=== PATIENT | male | born 1935 | race African-American/Black ===

== ENCOUNTER 2019-09-24 14:28 | Emergency (ER) | payer OTHER, MEDICAID ==
[~2019-09-24] VITALS: Ht 167.6 cm; Wt 72.7 kg
[~2019-09-24 14:28] MED LIST: advil
[2019-09-24 14:32] VITALS: BP 138/81
--- NOTE | 2019-09-24 14:40 | NUR ---
ambulated to bed 4
--- NOTE | 2019-09-24 14:42 | NUR ---
84 YO MALE CO BODYACHES X 6 MONTHS. NO RESPIRATORY DISTRESS, EUPNIC. VSS. 5/10 DISCOMFORT. PT STATES THAT HE HAS A SCRATCHY THROAT FROM SEASONAL ALLERGIES. HX OSTEOARTHRITIS
[2019-09-24] MEDS ORDERED: KETOROLAC 60 MG/2 ML VIAL IM ONE (14:50)
[2019-09-24 15:16] VITALS: BP 138/81
--- NOTE | 2019-09-24 15:16 | NUR ---
Patient discharged with v/s stable. Written and verbal after care instructions given and explained. Patient alert, oriented and verbalized understanding of instructions. Ambulatory with steady gait. All questions addressed prior to discharge. ID band removed. Patient advised to follow up with PMD. Rx of NORCO AND MOTRIN given. Patient educated on indication of medication including possible reaction and side effects. Opportunity to ask questions provided and answered.
== END 2019-09-24 15:16 | disposition home or self-care (01) ==
LOC: MED 14:28
DX: M79.10 Myalgia, unspecified site (principal); M19.90 Unspecified osteoarthritis, unspecified site; Z79.899 Other long term (current) drug therapy
CPT/HCPCS: 96372; 99283; J1885

== ENCOUNTER 2023-01-21 11:53 | Emergency (ER) | payer OTHER, MEDICAID ==
[~2023-01-21] VITALS: Ht 167.6 cm; Wt 64.9 kg
[2023-01-21 11:57] VITALS: BP 134/87; PULSE 60; RESP 18; TEMP 97.8; O2SAT 99
[2023-01-21] MEDS ORDERED: HYDR-5191 PO (13:04)
[2023-01-21] MEDS ORDERED: HYDROcodone/APAP 5/325 MG 1 TAB TAB PO ONE (13:30)
== END 2023-01-21 13:47 | disposition home or self-care (01) ==
LOC: MED 11:53
DX: Z76.0 Encounter for issue of repeat prescription (principal); Z79.899 Other long term (current) drug therapy
CPT/HCPCS: 99283

== ENCOUNTER 2023-02-21 11:33 | Emergency (ER) | payer OTHER, MEDICAID ==
[~2023-02-21] VITALS: Ht 165.1 cm; Wt 65.8 kg
[~2023-02-21 11:33] MED LIST changes: +HYDR-5191 PO
[2023-02-21 11:45] VITALS: BP 126/102; PULSE 58; RESP 15; TEMP 97.7; O2SAT 95
[2023-02-21] MEDS ORDERED: HYDROcodone/APAP 10/325 MG 1 TAB TAB PO PRN (13:00)
[2023-02-21] MEDS ORDERED: HYDR-5191 PO (13:08)
[2023-02-21 13:45] VITALS: BP 126/99; PULSE 62; RESP 15; TEMP 97.7; O2SAT 96
== END 2023-02-21 13:45 | disposition home or self-care (01) ==
LOC: MED 11:33
DX: G89.29 Other chronic pain (principal); M19.90 Unspecified osteoarthritis, unspecified site; Z76.0 Encounter for issue of repeat prescription; Z79.899 Other long term (current) drug therapy
CPT/HCPCS: 99283

== ENCOUNTER 2023-03-07 09:52 | Emergency (ER) | payer OTHER, MEDICAID ==
[~2023-03-07] VITALS: Ht 165.1 cm; Wt 64.4 kg
[2023-03-07 09:54] VITALS: BP 122/82; PULSE 61; RESP 16; TEMP 97.7; O2SAT 98
[2023-03-07] MEDS ORDERED: HYDROcodone/APAP 5/325 MG 1 TAB TAB PO ONE (10:10)
[2023-03-07] MEDS ORDERED: ACET-8905 PO (10:12)
[2023-03-07 10:27] VITALS: BP 122/82; PULSE 61; RESP 16; TEMP 97.7; O2SAT 98
== END 2023-03-07 10:27 | disposition home or self-care (01) ==
LOC: MED 09:52
DX: G89.29 Other chronic pain (principal); M19.90 Unspecified osteoarthritis, unspecified site; F17.210 Nicotine dependence, cigarettes, uncomplicated; Z71.6 Tobacco abuse counseling; Z79.899 Other long term (current) drug therapy
CPT/HCPCS: 99283

== ENCOUNTER 2023-04-02 14:34 | Emergency (ER) | payer OTHER, MEDICAID ==
[~2023-04-02] VITALS: Ht 180.3 cm; Wt 72.6 kg
[2023-04-02 14:34] VITALS: BP 165/90; PULSE 59; RESP 16; TEMP 98.1; O2SAT 95
[~2023-04-02 14:34] MED LIST changes: +ACET-8905 PO
[2023-04-02] MEDS ORDERED: ACET-8905 PO ×2 (17:44→17:45)
[2023-04-02 17:52] VITALS: BP 165/90; PULSE 59; RESP 16; TEMP 98.1; O2SAT 95
== END 2023-04-02 17:52 | disposition home or self-care (01) ==
LOC: MED 14:34
DX: G89.29 Other chronic pain (principal); Z76.0 Encounter for issue of repeat prescription; M19.90 Unspecified osteoarthritis, unspecified site; Z79.899 Other long term (current) drug therapy
CPT/HCPCS: 99283

== ENCOUNTER 2023-05-28 15:17 | Emergency (ER) | payer OTHER ==
[~2023-05-28] VITALS: Ht 175.3 cm; Wt 72.6 kg
[2023-05-28 15:27] VITALS: BP 148/87; PULSE 51; RESP 16; TEMP 98; O2SAT 99
[2023-05-28 16:16] VITALS: O2SAT 99
[2023-05-28] MEDS ORDERED: NALO4SPR NS (16:21)
[2023-05-28] MEDS ORDERED: ACET-8905 PO (16:21)
== END 2023-05-28 16:37 | disposition home or self-care (01) ==
LOC: MED 15:17
DX: G89.4 Chronic pain syndrome (principal); Z79.899 Other long term (current) drug therapy
CPT/HCPCS: 99281; 99283

== ENCOUNTER 2023-06-06 12:44 | Emergency (ER) | payer OTHER ==
[~2023-06-06] VITALS: Ht 182.9 cm; Wt 81.6 kg
[~2023-06-06 12:44] MED LIST changes: +NALO4SPR NS
[2023-06-06 12:48] VITALS: BP 115/63; PULSE 63; RESP 18; TEMP 97.9; O2SAT 99
[2023-06-06] MEDS: KETOROLAC 30 MG/ML VIAL IM ONE (17:37)
[2023-06-06 18:23] VITALS: BP 149/83; PULSE 52; RESP 18; TEMP 97.9; O2SAT 99
== END 2023-06-06 18:23 | disposition home or self-care (01) ==
LOC: MED 12:44
DX: G89.29 Other chronic pain (principal); I10 Essential (primary) hypertension; Z79.899 Other long term (current) drug therapy
CPT/HCPCS: 96372; 99283; J1885

== ENCOUNTER 2023-06-30 13:32 | Emergency (ER) | payer OTHER ==
[~2023-06-30] VITALS: Ht 165.1 cm; Wt 60.3 kg
[2023-06-30 14:08] VITALS: BP 124/85; PULSE 72; RESP 18; TEMP 98.1; O2SAT 98
[2023-06-30 15:31] LABS: BASOPHILS # (AUTO) 0.1 K/uL (0.00-0.22); BASOPHILS % (AUTO) 1.2 % (0.0-2.0); EOSINOPHILS # (AUTO) 0.2 K/uL (0-0.4); EOSINOPHILS % (AUTO) 2.6 % (0.0-4.0); HEMATOCRIT 34.8 % (36-52); HEMOGLOBIN 11.6 g/dL (12.0-18.0); LYMPHOCYTES # (AUTO) 2.2 K/uL (2.0-11.5); LYMPHOCYTES % (AUTO) 25.8 % (20.5-51.1); MEAN CORPUSCULAR HEMOGLOBIN 31 pg (27-31); MEAN CORPUSCULAR HGB CONC 34 g/dL (33-37); MEAN CORPUSCULAR VOLUME 93.2 fL (80-94); MONOCYTES # (AUTO) 0.9 K/uL (0.8-1.0); MONOCYTES % (AUTO) 10.2 % (1.7-9.3); NEUTROPHILS # (AUTO) 5.2 K/uL (1.8-7.7); NEUTROPHILS % (AUTO) 60.2 % (42.2-75.2); PLATELET COUNT (AUTO) 347 K/uL (140-450); RED BLOOD CELL COUNT(AUTO) 3.73 MIL/uL (4.20-6.10); RED CELL DISTRIBUTION WIDTH 15.5 % (11.6-13.7); WHITE BLOOD COUNT (AUTO) 8.6 K/uL (4.8-10.8)
[2023-06-30 15:38] VITALS: BP 138/76; PULSE 52; RESP 18; TEMP 98.2; O2SAT 97
[2023-06-30 15:39] LABS: APPEARANCE,URINE CLEAR (CLEAR); BILIRUBIN,URINE NEGATIVE (NEGATIVE); BLOOD, URINE 3+ (NEGATIVE); COLOR,URINE YELLOW (YELLOW); LEUKOCYTE ESTERASE ,URINE NEGATIVE (NEGATIVE); NITRITE, URINE NEGATIVE (NEGATIVE); PROTEIN,URINE 1+ (NEGATIVE); UGLUCOSE NEGATIVE (NEGATIVE); UROBILINOGEN,URINE 0.2 EU/dL (0.2 - 1)
[2023-06-30 15:40] LABS: ANION GAP 8.5 (8-16); CALCIUM 8.6 mg/dL (8.5-10.1); CARBON DIOXIDE 30.3 mmol/L (21-32); CHLORIDE 107 mmol/L (98-107); CREATININE 1.1 mg/dL (0.6-1.3); GLUCOSE 101 mg/dL (74-106); POTASSIUM 3.8 mmol/L (3.5-5.1); SODIUM SERUM 142 mmol/L (136-145); UREA NITROGEN, BLOOD 14 mg/dL (7-18)
[2023-06-30 15:40] LABS: BACTERIA,URINE 1+ /HPF (None Seen); MUCUS,URINE None Seen /LPF (None Seen); SQUAMOUS EPITHELIAL CELL,UR 0-3 (FEW) /LPF (0-3 (FEW)); WBC,URINE 0 /HPF (0-5)
[2023-06-30 15:54] LABS: AMPHETAMINE, URINE NEGATIVE ng/ml (NEG <=1000); BARBITURATE, URINE NEGATIVE ng/ml (NEG <=200); BENZODIAZEPINE, URINE NEGATIVE ng/mL (NEG <=200); CANNABINOID, URINE POSITIVE ng/mL (NEG <=50); COCAINE, URINE NEGATIVE ng/mL (NEG <=300); OPIATE, URINE NEGATIVE ng/mL (NEG <=2000); PHENCYCLIDINE SCREEN,URINE NEGATIVE ng/mL (NEG <=25)
[2023-06-30 15:59] LABS: ALANINE AMINOTRANSFERASE 11 U/L (12-78); ALBUMIN 2.6 g/dL (3.4-5.0); ALKALINE PHOSPHATASE 89 U/L (50-136); ASPARTATE AMINOTRANSFERASE 18 U/L (15-37); BILIRUBIN,DIRECT 0.1 mg/dL (0.0-0.3); MAGNESIUM 2.1 mg/dL (1.8-2.4); PHOSPHORUS 3.2 mg/dL (2.5-4.9); THYROID STIMULATING HORMONE 0.75 uIU/mL (0.34-3.74); TOTAL BILIRUBIN 0.2 mg/dL (0.0-1.0); TOTAL PROTEIN, SERUM 6.9 g/dL (6.4-8.2)
== END 2023-06-30 17:40 | disposition home or self-care (01) ==
LOC: MED 13:32
DX: R91.8 Other nonspecific abnormal finding of lung field (principal); D64.9 Anemia, unspecified; F12.90 Cannabis use, unspecified, uncomplicated; R53.1 Weakness; I10 Essential (primary) hypertension; Z79.899 Other long term (current) drug therapy
CPT/HCPCS: 36415; 70450; 71045; 80048; 80076; 80305; 81001; 83735; 84100; 84443; 84484; 85025; 87086; 93005; 99284; G0482

== ENCOUNTER 2023-10-25 21:50 | Inpatient (IN) | payer OTHER ==
[~2023-10-25] VITALS: Ht 182.9 cm; Wt 81.6 kg
[~2023-10-25 21:50] MED LIST changes: +HYDR-5071 PO; -HYDR-5191 PO
[2023-10-25 21:58] VITALS: BP 145/82; PULSE 65; RESP 16; TEMP 97.4; O2SAT 97
[2023-10-25 22:00] VITALS: O2SAT 98
[2023-10-25] MEDS: MORPHINE SULFATE 4 MG/ML SYR IM ONE (23:17)
[2023-10-26 00:14] VITALS: O2SAT 98
[2023-10-26 04:50] VITALS: O2SAT 98
[2023-10-26 06:47] VITALS: O2SAT 98
[2023-10-26 09:09] LABS: APPEARANCE,URINE CLEAR (CLEAR); BILIRUBIN,URINE NEGATIVE (NEGATIVE); BLOOD, URINE 1+ (NEGATIVE); COLOR,URINE YELLOW (YELLOW); LEUKOCYTE ESTERASE ,URINE NEGATIVE (NEGATIVE); NITRITE, URINE NEGATIVE (NEGATIVE); PROTEIN,URINE NEGATIVE (NEGATIVE); UGLUCOSE NEGATIVE (NEGATIVE); UROBILINOGEN,URINE 0.2 EU/dL (0.2 - 1)
[2023-10-26 09:13] LABS: BASOPHILS # (AUTO) 0.1 K/uL (0.00-0.22); BASOPHILS % (AUTO) 0.8 % (0.0-2.0); EOSINOPHILS # (AUTO) 0.2 K/uL (0-0.4); EOSINOPHILS % (AUTO) 2.7 % (0.0-4.0); HEMATOCRIT 36.6 % (36-52); LYMPHOCYTES # (AUTO) 3.1 K/uL (2.0-11.5); LYMPHOCYTES % (AUTO) 35.5 % (20.5-51.1); MEAN CORPUSCULAR HEMOGLOBIN 30 pg (27-31); MEAN CORPUSCULAR HGB CONC 33 g/dL (33-37); MEAN CORPUSCULAR VOLUME 90.4 fL (80-94); MONOCYTES # (AUTO) 0.9 K/uL (0.8-1.0); MONOCYTES % (AUTO) 10.3 % (1.7-9.3); NEUTROPHILS # (AUTO) 4.5 K/uL (1.8-7.7); NEUTROPHILS % (AUTO) 50.7 % (42.2-75.2); PLATELET COUNT (AUTO) 364 K/uL (140-450); RED BLOOD CELL COUNT(AUTO) 4.05 MIL/uL (4.20-6.10); RED CELL DISTRIBUTION WIDTH 16.7 % (11.6-13.7); WHITE BLOOD COUNT (AUTO) 8.8 K/uL (4.8-10.8)
[2023-10-26 09:25] LABS: BACTERIA,URINE FEW /HPF (None Seen); SQUAMOUS EPITHELIAL CELL,UR 0-3 (FEW) /LPF (0-3 (FEW)); WBC,URINE 0-5 /HPF (0-5)
[2023-10-26 09:34] LABS: ALKALINE PHOSPHATASE 105 U/L (50-136); ANION GAP 11.1 (8-16); CALCIUM 9.3 mg/dL (8.5-10.1); CARBON DIOXIDE 28.5 mmol/L (21-32); CHLORIDE 100 mmol/L (98-107); CREATININE 1.1 mg/dL (0.6-1.3); GLUCOSE 81 mg/dL (74-106); POTASSIUM 3.6 mmol/L (3.5-5.1); SODIUM SERUM 136 mmol/L (136-145); TOTAL BILIRUBIN 0.6 mg/dL (0.0-1.0); UREA NITROGEN, BLOOD 19 mg/dL (7-18)
[2023-10-26 09:35] LABS: ALANINE AMINOTRANSFERASE 13 U/L (12-78); ALBUMIN 2.9 g/dL (3.4-5.0); TOTAL PROTEIN, SERUM 7.9 g/dL (6.4-8.2)
[2023-10-26 09:43] LABS: ASPARTATE AMINOTRANSFERASE 20 U/L (15-37)
[2023-10-26] MEDS ORDERED: KCL 20 MEQ IN 100 mL PREMIX 200 ML IV PRN (10:45)
[2023-10-26] MEDS ORDERED: MAGNESIUM OXIDE 400 MG TAB PO PRN (10:45)
[2023-10-26] MEDS ORDERED: POTASSIUM CHLORIDE 10 MEQ TABER PO PRN (10:45)
[2023-10-26] MEDS ORDERED: MAG SULF 2000 MG/WATER PREMIX 50 ML IV PRN (10:45)
[2023-10-26] MEDS ORDERED: ONDANSETRON 4 MG/2 ML VIAL IVP PRN (10:45)
[2023-10-26] MEDS: NACL 0.9% 1,000 ML IV SCH (12:08)
[2023-10-26 16:00] VITALS: BP 140/85; PULSE 59; RESP 17; TEMP 98.3; O2SAT 95
[2023-10-26 19:45] VITALS: PULSE 60; RESP 17; O2SAT 95
[2023-10-26 20:00] VITALS: BP 139/85; PULSE 60; RESP 17; TEMP 97.3; O2SAT 95
[2023-10-26] MEDS: HYDROcodone/APAP 5/325 MG 1 TAB TAB PO PRN (22:43)
[2023-10-27] VITALS: BP 142/83; PULSE 61; RESP 17; TEMP 97.4; O2SAT 95
[2023-10-27 04:11] VITALS: BP 138/80; PULSE 60; RESP 17; TEMP 97.6; O2SAT 95
[2023-10-27 06:51] LABS: BASOPHILS % (AUTO) 0.5 % (0.0-2.0); EOSINOPHILS # (AUTO) 0.3 K/uL (0-0.4); HEMATOCRIT 35.8 % (36-52); HEMOGLOBIN 11.5 g/dL (12.0-18.0); LYMPHOCYTES # (AUTO) 3.4 K/uL (2.0-11.5); LYMPHOCYTES % (AUTO) 36.9 % (20.5-51.1); MEAN CORPUSCULAR HEMOGLOBIN 29 pg (27-31); MEAN CORPUSCULAR HGB CONC 32 g/dL (33-37); MEAN CORPUSCULAR VOLUME 90.9 fL (80-94); MONOCYTES # (AUTO) 0.9 K/uL (0.8-1.0); MONOCYTES % (AUTO) 9.3 % (1.7-9.3); NEUTROPHILS # (AUTO) 4.6 K/uL (1.8-7.7); NEUTROPHILS % (AUTO) 50.3 % (42.2-75.2); PLATELET COUNT (AUTO) 358 K/uL (140-450); RED BLOOD CELL COUNT(AUTO) 3.94 MIL/uL (4.20-6.10); RED CELL DISTRIBUTION WIDTH 16.4 % (11.6-13.7); WHITE BLOOD COUNT (AUTO) 9.2 K/uL (4.8-10.8)
[2023-10-27 07:06] LABS: MAGNESIUM 1.9 mg/dL (1.8-2.4)
[2023-10-27 07:18] LABS: ANION GAP 11.9 (8-16); CALCIUM 8.8 mg/dL (8.5-10.1); CARBON DIOXIDE 26.8 mmol/L (21-32); CHLORIDE 102 mmol/L (98-107); CREATININE 1.1 mg/dL (0.6-1.3); GLUCOSE 70 mg/dL (74-106); POTASSIUM 3.7 mmol/L (3.5-5.1); SODIUM SERUM 137 mmol/L (136-145); UREA NITROGEN, BLOOD 20 mg/dL (7-18)
[2023-10-27 08:00] VITALS: PULSE 71; RESP 18; O2SAT 99
[2023-10-27 12:00] VITALS: BP 138/74; PULSE 71; RESP 18; TEMP 97.8; O2SAT 99
[2023-10-27] MEDS: ACETAMINOPHEN 325 MG TAB PO PRN (17:16)
[2023-10-27 20:00] VITALS: BP 114/75; PULSE 60; RESP 18; TEMP 97.8; O2SAT 99
[2023-10-28 04:00] VITALS: BP 145/72; PULSE 58; RESP 18; TEMP 97; O2SAT 99
[2023-10-28 07:20] LABS: BASOPHILS # (AUTO) 0.1 K/uL (0.00-0.22); BASOPHILS % (AUTO) 1.1 % (0.0-2.0); EOSINOPHILS # (AUTO) 0.3 K/uL (0-0.4); EOSINOPHILS % (AUTO) 4.1 % (0.0-4.0); HEMATOCRIT 33.2 % (36-52); HEMOGLOBIN 11.1 g/dL (12.0-18.0); LYMPHOCYTES # (AUTO) 2.4 K/uL (2.0-11.5); LYMPHOCYTES % (AUTO) 30.6 % (20.5-51.1); MEAN CORPUSCULAR HEMOGLOBIN 30 pg (27-31); MEAN CORPUSCULAR HGB CONC 33 g/dL (33-37); MEAN CORPUSCULAR VOLUME 89.8 fL (80-94); MONOCYTES # (AUTO) 0.9 K/uL (0.8-1.0); MONOCYTES % (AUTO) 11.2 % (1.7-9.3); NEUTROPHILS # (AUTO) 4.2 K/uL (1.8-7.7); PLATELET COUNT (AUTO) 361 K/uL (140-450); RED CELL DISTRIBUTION WIDTH 16.6 % (11.6-13.7)
[2023-10-28 07:33] LABS: ANION GAP 11.6 (8-16); CALCIUM 8.9 mg/dL (8.5-10.1); CARBON DIOXIDE 26.3 mmol/L (21-32); CHLORIDE 104 mmol/L (98-107); GLUCOSE 69 mg/dL (74-106); POTASSIUM 3.9 mmol/L (3.5-5.1); SODIUM SERUM 138 mmol/L (136-145); UREA NITROGEN, BLOOD 17 mg/dL (7-18)
[2023-10-28 07:40] LABS: MAGNESIUM 1.9 mg/dL (1.8-2.4); PHOSPHORUS 3.3 mg/dL (2.5-4.9)
[2023-10-28 08:00] VITALS: PULSE 55; RESP 18; O2SAT 99
[2023-10-28] MEDS ORDERED: ACET-1182 PO (10:55)
[2023-10-28 20:00] VITALS: BP 113/68; PULSE 78; RESP 18; TEMP 97; O2SAT 100
[2023-10-29 04:00] VITALS: BP 130/74; PULSE 60; RESP 18; TEMP 97.3; O2SAT 98
[2023-10-29 06:44] LABS: BASOPHILS # (AUTO) 0.1 K/uL (0.00-0.22); EOSINOPHILS # (AUTO) 0.3 K/uL (0-0.4); HEMATOCRIT 33.6 % (36-52); LYMPHOCYTES % (AUTO) 34.1 % (20.5-51.1); MEAN CORPUSCULAR HEMOGLOBIN 29 pg (27-31); MEAN CORPUSCULAR HGB CONC 33 g/dL (33-37); MEAN CORPUSCULAR VOLUME 89.7 fL (80-94); MONOCYTES # (AUTO) 0.9 K/uL (0.8-1.0); MONOCYTES % (AUTO) 10.8 % (1.7-9.3); NEUTROPHILS # (AUTO) 4.5 K/uL (1.8-7.7); NEUTROPHILS % (AUTO) 51.1 % (42.2-75.2); PLATELET COUNT (AUTO) 345 K/uL (140-450); RED BLOOD CELL COUNT(AUTO) 3.74 MIL/uL (4.20-6.10); RED CELL DISTRIBUTION WIDTH 16.5 % (11.6-13.7); WHITE BLOOD COUNT (AUTO) 8.7 K/uL (4.8-10.8)
[2023-10-29 06:56] LABS: INR 1.11 (0.8-1.2); PARTIAL THROMBOPLASTIN TIME 27.7 secs (22-35.6); PROTHROMBIN TIME 11.6 secs (10.8-13.4)
[2023-10-29 06:57] LABS: MAGNESIUM 1.8 mg/dL (1.8-2.4); PHOSPHORUS 3.3 mg/dL (2.5-4.9)
[2023-10-29 07:40] LABS: ANION GAP 12.8 (8-16); CALCIUM 8.7 mg/dL (8.5-10.1); CHLORIDE 104 mmol/L (98-107); GLUCOSE 78 mg/dL (74-106); POTASSIUM 3.8 mmol/L (3.5-5.1); SODIUM SERUM 139 mmol/L (136-145); UREA NITROGEN, BLOOD 17 mg/dL (7-18)
[2023-10-29 08:00] VITALS: PULSE 62; RESP 18; O2SAT 96
[2023-10-29 12:00] VITALS: BP 125/82; PULSE 62; RESP 18; TEMP 98.3; O2SAT 96
[2023-10-29 20:00] VITALS: BP 103/67; PULSE 84; RESP 18; TEMP 96.3; O2SAT 96
[2023-10-30 04:00] VITALS: BP 125/68; PULSE 59; RESP 18; TEMP 97.6; O2SAT 96
[2023-10-30 07:34] LABS: BASOPHILS # (AUTO) 0.1 K/uL (0.00-0.22); BASOPHILS % (AUTO) 0.7 % (0.0-2.0); EOSINOPHILS # (AUTO) 0.3 K/uL (0-0.4); EOSINOPHILS % (AUTO) 2.5 % (0.0-4.0); HEMATOCRIT 34.7 % (36-52); HEMOGLOBIN 11.3 g/dL (12.0-18.0); LYMPHOCYTES # (AUTO) 3.7 K/uL (2.0-11.5); LYMPHOCYTES % (AUTO) 37.2 % (20.5-51.1); MEAN CORPUSCULAR HEMOGLOBIN 30 pg (27-31); MEAN CORPUSCULAR HGB CONC 33 g/dL (33-37); MEAN CORPUSCULAR VOLUME 90.5 fL (80-94); MONOCYTES # (AUTO) 1.1 K/uL (0.8-1.0); MONOCYTES % (AUTO) 10.5 % (1.7-9.3); NEUTROPHILS # (AUTO) 4.9 K/uL (1.8-7.7); NEUTROPHILS % (AUTO) 49.1 % (42.2-75.2); PLATELET COUNT (AUTO) 327 K/uL (140-450); RED BLOOD CELL COUNT(AUTO) 3.84 MIL/uL (4.20-6.10); RED CELL DISTRIBUTION WIDTH 16.5 % (11.6-13.7)
[2023-10-30 07:53] LABS: ANION GAP 11.8 (8-16); CALCIUM 9.1 mg/dL (8.5-10.1); CARBON DIOXIDE 26.4 mmol/L (21-32); CHLORIDE 104 mmol/L (98-107); CREATININE 1.1 mg/dL (0.6-1.3); GLUCOSE 81 mg/dL (74-106); POTASSIUM 4.2 mmol/L (3.5-5.1); SODIUM SERUM 138 mmol/L (136-145); UREA NITROGEN, BLOOD 21 mg/dL (7-18)
[2023-10-30 08:00] VITALS: PULSE 79; RESP 17; O2SAT 96
[2023-10-30 08:03] LABS: INR 1.11 (0.8-1.2); PARTIAL THROMBOPLASTIN TIME 32.1 secs (22-35.6); PROTHROMBIN TIME 11.5 secs (10.8-13.4)
[2023-10-30 08:10] LABS: PHOSPHORUS 3.4 mg/dL (2.5-4.9)
[2023-10-30] MEDS ORDERED: fentaNYL citrate 0.05 MG/ML VIAL ONE (09:50)
[2023-10-30] MEDS ORDERED: MIDAZOLAM 2 MG/2 ML VIAL ONE (09:51)
[2023-10-30] MEDS ORDERED: LIDOCAINE 1% 500 MG/50 ML VIAL ONE (09:51)
[2023-10-30 12:00] VITALS: BP 128/68; PULSE 64; RESP 17; TEMP 98.4; O2SAT 96
[2023-10-30 17:57] VITALS: BP 126/74; PULSE 89; RESP 19; TEMP 98
== END 2023-10-30 18:25 | DRG 181 ==
LOC: MED 21:50 → MMU 10-26 10:46 → MTU 10-26 12:36
PROVIDERS: ADMIT Hospitalist; ATTEND Hospitalist
PROC: 0BBK3ZX Excision of Right Lung, Percutaneous Approach, Diagnostic (ICD-10-PCS; principal; 2023-10-30)
DX: C34.91 Malignant neoplasm of unspecified part of right bronchus or lung (principal); E44.0 Moderate protein-calorie malnutrition; E86.0 Dehydration; I10 Essential (primary) hypertension; G89.29 Other chronic pain; J44.9 Chronic obstructive pulmonary disease, unspecified; F17.200 Nicotine dependence, unspecified, uncomplicated; Z68.24 Body mass index [BMI] 24.0-24.9, adult; M19.09 Primary osteoarthritis, other specified site; Z79.899 Other long term (current) drug therapy
CPT/HCPCS: 36415; 70450; 71045; 71270; 77012; 80048; 80053; 81001; 83735; 84100; 84484; 85025; 85610; 85730; 88305; 88313; 88342; 93005; 96372; 97110; 97116; 97163-GP; 97530; 99285; J1644; J2001; J2250; J2270; J3010; Q0092; Q9967

== ENCOUNTER 2024-01-03 02:37 | Inpatient (IN) | payer OTHER ==
[~2024-01-03] VITALS: Ht 177.8 cm; Wt 62.6 kg
[2024-01-03] VITALS (7 sets, daily range): BP systolic 95–177; BP diastolic 61–88; PULSE 20–71; RESP 16–20; TEMP 97.6–98.7; O2SAT 94–100
[~2024-01-03 02:37] MED LIST changes: +ACET-1182 PO; -ACET-8905 PO; -NALO4SPR NS; -advil
[2024-01-03] MEDS: HYDROcodone/APAP 5/325 MG 1 TAB TAB PO ONE (02:54)
[2024-01-03 03:24] LABS: BASOPHILS % (AUTO) 0.5 % (0.0-2.0); EOSINOPHILS # (AUTO) 0.1 K/uL (0-0.4); EOSINOPHILS % (AUTO) 2.1 % (0.0-4.0); HEMATOCRIT 34.7 % (36-52); HEMOGLOBIN 11.2 g/dL (12.0-18.0); LYMPHOCYTES % (AUTO) 36.9 % (20.5-51.1); MEAN CORPUSCULAR HEMOGLOBIN 28 pg (27-31); MEAN CORPUSCULAR HGB CONC 32 g/dL (33-37); MEAN CORPUSCULAR VOLUME 88.1 fL (80-94); MONOCYTES # (AUTO) 0.6 K/uL (0.8-1.0); MONOCYTES % (AUTO) 12.1 % (1.7-9.3); NEUTROPHILS # (AUTO) 2.6 K/uL (1.8-7.7); NEUTROPHILS % (AUTO) 48.4 % (42.2-75.2); PLATELET COUNT (AUTO) 316 K/uL (140-450); RED BLOOD CELL COUNT(AUTO) 3.93 MIL/uL (4.20-6.10); RED CELL DISTRIBUTION WIDTH 15.8 % (11.6-13.7); WHITE BLOOD COUNT (AUTO) 5.4 K/uL (4.8-10.8)
[2024-01-03 03:40] LABS: ANION GAP 8.9 (8-16); CALCIUM 8.4 mg/dL (8.5-10.1); CARBON DIOXIDE 28.8 mmol/L (21-32); CHLORIDE 98 mmol/L (98-107); CREATININE 1.3 mg/dL (0.6-1.3); GLUCOSE 92 mg/dL (74-106); POTASSIUM 3.7 mmol/L (3.5-5.1); SODIUM SERUM 132 mmol/L (136-145); UREA NITROGEN, BLOOD 26 mg/dL (7-18)
[2024-01-03] MEDS ORDERED: MORPHINE SULFATE 4 MG/ML SYR IVP PRN (07:45)
[2024-01-03] MEDS ORDERED: ONDANSETRON 4 MG/2 ML VIAL IVP PRN (07:45)
[2024-01-03] MEDS ORDERED: DABI150C PO (08:37)
[2024-01-03] MEDS ORDERED: TAMS0.4C96 PO (08:37)
[2024-01-03] MEDS ORDERED: ATOR40TA PO (08:37)
[2024-01-03] MEDS ORDERED: FINA-54 PO (08:37)
[2024-01-03] MEDS: NACL 0.9% 1,000 ML IV SCH (10:05)
[2024-01-03] MEDS: ENOXAPARIN 40 MG/0.4 ML SYR SUBQ SCH (10:06)
[2024-01-03] MEDS: ACETAMINOPHEN 325 MG TAB PO PRN (20:16)
[2024-01-03] MEDS ORDERED: ATORVASTATIN 20 MG TAB PO SCH (21:00)
[2024-01-03] MEDS: DABIGATRAN ETEXILATE MESYLAT 75 MG CAP PO SCH (21:00)
[2024-01-04 07:32] LABS: BASOPHILS % (AUTO) 0.2 % (0.0-2.0); EOSINOPHILS # (AUTO) 0.2 K/uL (0-0.4); EOSINOPHILS % (AUTO) 3.7 % (0.0-4.0); HEMATOCRIT 30.9 % (36-52); HEMOGLOBIN 10.2 g/dL (12.0-18.0); LYMPHOCYTES # (AUTO) 2.4 K/uL (2.0-11.5); LYMPHOCYTES % (AUTO) 46.8 % (20.5-51.1); MEAN CORPUSCULAR HEMOGLOBIN 29 pg (27-31); MEAN CORPUSCULAR HGB CONC 33 g/dL (33-37); MEAN CORPUSCULAR VOLUME 87.4 fL (80-94); MONOCYTES # (AUTO) 0.5 K/uL (0.8-1.0); MONOCYTES % (AUTO) 10.1 % (1.7-9.3); NEUTROPHILS % (AUTO) 39.2 % (42.2-75.2); PLATELET COUNT (AUTO) 289 K/uL (140-450); RED BLOOD CELL COUNT(AUTO) 3.54 MIL/uL (4.20-6.10); RED CELL DISTRIBUTION WIDTH 15.6 % (11.6-13.7); WHITE BLOOD COUNT (AUTO) 5.1 K/uL (4.8-10.8)
[2024-01-04 07:41] LABS: ANION GAP 10.4 (8-16); CALCIUM 7.8 mg/dL (8.5-10.1); CARBON DIOXIDE 23.5 mmol/L (21-32); CHLORIDE 104 mmol/L (98-107); CREATININE 0.9 mg/dL (0.6-1.3); GLUCOSE 80 mg/dL (74-106); POTASSIUM 3.9 mmol/L (3.5-5.1); SODIUM SERUM 134 mmol/L (136-145); UREA NITROGEN, BLOOD 21 mg/dL (7-18)
[2024-01-04 08:00] VITALS: BP 116/69; PULSE 52; RESP 18; TEMP 98.2; O2SAT 99
[2024-01-04] MEDS: TAMSULOSIN 0.4 MG CAP PO SCH (11:11)
[2024-01-04 16:00] VITALS: BP 113/62; PULSE 64; RESP 19; TEMP 98.3; O2SAT 100
[2024-01-04 19:23] VITALS: O2SAT 98
[2024-01-04 20:00] VITALS: PULSE 60; RESP 18; TEMP 98.6; O2SAT 98
[2024-01-05] VITALS: BP 110/60; PULSE 65; RESP 18; TEMP 98.1; O2SAT 98
[2024-01-05 07:02] LABS: BASOPHILS % (AUTO) 0.6 % (0.0-2.0); EOSINOPHILS # (AUTO) 0.1 K/uL (0-0.4); EOSINOPHILS % (AUTO) 2.6 % (0.0-4.0); HEMATOCRIT 33.5 % (36-52); HEMOGLOBIN 10.8 g/dL (12.0-18.0); LYMPHOCYTES # (AUTO) 1.8 K/uL (2.0-11.5); LYMPHOCYTES % (AUTO) 36.8 % (20.5-51.1); MEAN CORPUSCULAR HEMOGLOBIN 28 pg (27-31); MEAN CORPUSCULAR HGB CONC 32 g/dL (33-37); MEAN CORPUSCULAR VOLUME 87.5 fL (80-94); MONOCYTES # (AUTO) 0.5 K/uL (0.8-1.0); MONOCYTES % (AUTO) 9.4 % (1.7-9.3); NEUTROPHILS # (AUTO) 2.5 K/uL (1.8-7.7); NEUTROPHILS % (AUTO) 50.6 % (42.2-75.2); PLATELET COUNT (AUTO) 290 K/uL (140-450); RED BLOOD CELL COUNT(AUTO) 3.82 MIL/uL (4.20-6.10); RED CELL DISTRIBUTION WIDTH 15.5 % (11.6-13.7)
[2024-01-05 07:14] LABS: ANION GAP 9.7 (8-16); CARBON DIOXIDE 25.4 mmol/L (21-32); CHLORIDE 104 mmol/L (98-107); CREATININE 0.9 mg/dL (0.6-1.3); GLUCOSE 81 mg/dL (74-106); POTASSIUM 4.1 mmol/L (3.5-5.1); SODIUM SERUM 135 mmol/L (136-145); UREA NITROGEN, BLOOD 18 mg/dL (7-18)
[2024-01-05 08:00] VITALS: BP 129/100; PULSE 55; RESP 18; TEMP 97.1; O2SAT 100
[2024-01-05] MEDS: HYDROcodone/APAP 5/325 MG 1 TAB TAB PO PRN (13:23)
[2024-01-05 14:33] VITALS: BP 124/100; PULSE 62; RESP 18; TEMP 97.1
[2024-01-05 16:00] VITALS: BP 121/62; PULSE 56; RESP 18; TEMP 98.1; O2SAT 99
== END 2024-01-05 19:35 | DRG 205 ==
LOC: MED 02:37 → OBSVTOIN 07:42 → MTU 07:42
PROVIDERS: ADMIT Student in an Organized Health Care Education/Training Program; ATTEND Student in an Organized Health Care Education/Training Program
DX: M94.0 Chondrocostal junction syndrome [Tietze] (principal); U07.1 COVID-19; C34.90 Malignant neoplasm of unspecified part of unspecified bronchus or lung; E87.1 Hypo-osmolality and hyponatremia; I10 Essential (primary) hypertension; N40.0 Benign prostatic hyperplasia without lower urinary tract symptoms; E78.5 Hyperlipidemia, unspecified; Z86.711 Personal history of pulmonary embolism; Z79.899 Other long term (current) drug therapy
CPT/HCPCS: 36415; 71045; 80048; 83735; 84484; 85025; 87081; 93005; 97163-GP; 99285; J1650; Q0092